=== PATIENT | male | born 1990 ===

== ENCOUNTER 2016-09-28 11:23 | Emergency (ER) | payer SELFPAY ==
[2016-09-28 12:11] VITALS: BP 118/74
--- NOTE | 2016-09-28 12:57 | UC ---
Skin Complaint HPI - History of Current Complaint Chief Complaint: UCSkin Time Seen by Provider: 09/28/16 12:46 Stated Complaint: RASH Hx Obtained From: Patient Onset/Duration: Sudden Onset - 3-4 weeks burning sensation in the urethra then a rash broke out with an itchy sensation., Still Present Onset Severity: Mild Current Severity: Mild Location: Discrete - penis, scrotum Character: Pruritus, Pain Aggravating: Touch Alleviating: Nothing Associated Signs & Symptoms: Positive: Rash Related History: Possible Reaction to: Environmental Exposure - laundry detergent or dryer sheet. - Allergy/Home Medications Allergies/Adverse Reactions: Allergies Allergy/AdvReac Type Severity Reaction Status Date / Time No Known Allergies Allergy Verified 09/28/16 12:05 Home Medications: Home Medications Omeprazole CAP* [Prilosec CAP* 20 MG] 20 mg PO DAILY 09/28/16 [History Confirmed 09/28/16] Review of Systems Skin: Rash Genitourinary: Dysuria, Urgency All Other Systems Reviewed And Are Negative: Yes PMH/Surg Hx/FS Hx/Imm Hx Previously Healthy: Yes - Surgical History Surgical History: None - Family History Known Family History: Positive: Cardiac Disease, Hypertension Negative: Diabetes - Social History Occupation: Employed Full-time Lives: Alone - with roommate Alcohol Use: Rare Substance Use Type: None Smoking Status (MU): Never Smoked Tobacco Have You Smoked in the Last Year: No Household Exposure Type: Cigarettes Physical Exam Triage Information Reviewed: Yes Appearance: Well-Appearing, No Pain Distress, Well-Nourished Vital Signs: Initial Vital Signs Temp 98.1 F 09/28/16 12:05 Pulse 91 09/28/16 12:05 Resp 18 09/28/16 12:05 BP 118/74 09/28/16 12:05 Pulse Ox 100 09/28/16 12:05 Vital Signs Reviewed: Yes Eyes: Positive: Conjunctiva Clear ENT: Positive: Pharynx normal, TMs normal Neck exam: Normal Respiratory Exam: Normal Cardiovascular Exam: Normal Abdomen Description: Positive: No Organomegaly, Soft. Negative: Nontender - suprapubic discomfort with full bladder., McBurney's Point Tenderness, Peritoneal Signs Bowel Sounds: Positive: Present Musculoskeletal Exam: Normal Neurological Exam: Normal Psychological Exam: Normal Skin Exam: Normal Course/Dx - Differential Diagnoses - Skin Complaint Differential Diagnoses: Allergic Reaction, Drug Rash, Impetigo - Diagnoses Provider Diagnoses: Urethritis Discharge - Discharge Plan Condition: Stable Disposition: HOME Prescriptions: DOXYcycline CAP(*) [DOXYcycline 100MG CAP(*)] 100 mg PO BID #20 cap Patient Education Materials: Nonspecific Urethritis in Men (ED), Doxycycline ( By mouth), Prostatitis (ED) Additional Instructions: Sunscreen, Coppertone Water Babies Pure and Free.
== END 2016-09-28 13:41 | disposition home or self-care (01) ==
LOC: UCCORT 11:23
DX: N34.2 Other urethritis (principal); R21 Rash and other nonspecific skin eruption; Z77.22 Contact with and (suspected) exposure to environmental tobacco smoke (acute) (chronic)
CPT/HCPCS: 81003; 87491; 87591; 99212; G0463

== ENCOUNTER 2016-11-01 10:49 | Emergency (ER) | payer SELFPAY ==
[2016-11-01 12:12] VITALS: BP 130/80
--- NOTE | 2016-11-01 12:38 | UC ---
Skin Complaint HPI - HPI Summary HPI Summary: Very itchy lesions on R trunk 5 days ago, started as vesicles now open and scabbed. Pt's friend has been applying H2O2 for him but it is still very itchy. Denies fevers or other illness, no known exposures. - History of Current Complaint Chief Complaint: UCRash Time Seen by Provider: 11/01/16 12:15 Stated Complaint: RASH Hx Obtained From: Patient Onset/Duration: Gradual Onset, Lasting Days Skin Exposure Onset/Duration: Days Ago Timing: Constant Onset Severity: Mild Current Severity: Moderate Location: Discrete Character: Pruritus, Redness Aggravating: Clothing, Touch Alleviating: Nothing Associated Signs & Symptoms: Positive: Rash, Drainage - Allergy/Home Medications Allergies/Adverse Reactions: Allergies Allergy/AdvReac Type Severity Reaction Status Date / Time No Known Allergies Allergy Verified 11/01/16 12:12 Review of Systems Constitutional: Negative Skin: Rash Eyes: Negative ENT: Negative Respiratory: Negative Cardiovascular: Negative Gastrointestinal: Negative Genitourinary: Negative Motor: Negative Neurovascular: Negative Musculoskeletal: Negative Neurological: Negative Psychological: Negative All Other Systems Reviewed And Are Negative: Yes PMH/Surg Hx/FS Hx/Imm Hx Previously Healthy: Yes - Surgical History Surgical History: None - Family History Known Family History: Positive: Cardiac Disease, Hypertension Negative: Diabetes - Social History Occupation: Employed Full-time Alcohol Use: Rare Substance Use Type: None Smoking Status (MU): Never Smoked Tobacco Have You Smoked in the Last Year: No Household Exposure Type: Cigarettes Physical Exam Triage Information Reviewed: Yes Appearance: Well-Appearing, No Pain Distress, Well-Nourished Vital Signs: Initial Vital Signs Temp 98.2 F 11/01/16 12:07 Pulse 67 11/01/16 12:07 Resp 18 11/01/16 12:07 BP 130/80 11/01/16 12:07 Pulse Ox 100 11/01/16 12:07 Vital Signs Reviewed: Yes Eye Exam: Normal, Other - PERRL Eyes: Positive: Conjunctiva Clear ENT Exam: Normal ENT: Positive: Normal ENT inspection, Hearing grossly normal, Pharynx normal, TMs normal Dental Exam: Normal Neck exam: Normal Neck: Positive: Supple Respiratory Exam: Normal Respiratory: Positive: Chest non-tender, Lungs clear, Normal breath sounds, No respiratory distress, No accessory muscle use Cardiovascular Exam: Normal Cardiovascular: Positive: RRR, No Murmur Musculoskeletal Exam: Normal Neurological Exam: Normal Psychological Exam: Normal Skin Exam: Other - Irreg red and crusted lesions on R chest and abdomen, not in dermatomal distribution Course/Dx - Diagnoses Provider Diagnoses: R torso contact dermatitis Discharge - Discharge Plan Condition: Stable Disposition: HOME Prescriptions: Fluocinonide 0.05% CM(NF) [Lidex 0.05% CREAM(NF)] 1 applic TOPICAL TID #30 gm Patient Education Materials: Contact Dermatitis (ED) Referrals: No Primary Care Phys,NOPCP [Primary Care Provider] - Additional Instructions: Take antihistamines for itching -- you could take loratadine or cetirizine twice daily, or your could take diphenhydramine 25-50mg every 6 hours.
== END 2016-11-01 12:36 | disposition home or self-care (01) ==
LOC: UCEAST 10:49
DX: L25.9 Unspecified contact dermatitis, unspecified cause (principal)
CPT/HCPCS: 99212; G0463